=== PATIENT | male | born 1990 | race Two or more races ===

== ENCOUNTER 2024-03-10 11:21 | Emergency (ER) | payer OTHER, SELFPAY ==
[2024-03-10 11:22] VITALS: BMI 30.9
[2024-03-10 12:01] VITALS: BP 142/101; PULSE 93; RESP 18; TEMP 37.1; O2SAT 98; BMI 30.4
--- NOTE | 2024-03-10 12:21 | XR_ITS ---
Examination: Wrist, left 3 views Technique: Wrist AP, oblique, lateral 3 views Date and time of exam: March 10, 2024 1227 hours INDICATIONS: Patient fell from a ladder today with injury to the wrist, wrist pain FINDINGS: Acute comminuted intra-articular fracture distal radial metaphysis, mild offset of the articulating surface Fracture ulnar styloid tip Palmar angulation at the fracture site IMPRESSION: Acute comminuted angulated intra-articular fracture distal radial metaphysis
--- NOTE | 2024-03-10 12:34 | PD.EDRME ---
Rapid Medical Screening Exam RME Arrival date/time: 03/10/24 11:21 33-year-old male presents emergency department today with injury to left wrist while at work today patient appears to deformity Chief Complaint: Extremity Injury, Upper Vital signs: Vital Signs Temperature 98.8 F 03/10/24 12:01 Pulse Rate 93 03/10/24 12:01 Respiratory Rate 18 03/10/24 12:01 Blood Pressure 142/101 H 03/10/24 12:01 Pulse Oximetry (%) 98 03/10/24 12:01 Oxygen Delivery Method Room Air 03/10/24 12:01
[2024-03-10] MEDS: HYDROcodone/APAP 5/325 TABLET 1 TAB PO (13:04)
--- NOTE | 2024-03-10 14:28 | EDNOTE_ITS ---
Upper Extremity Injury RME/HPI General Chief Complaint: Extremity Injury, Upper Stated Complaint: FALL AT WORK LEFT WRIST DEFORMITY Arrival date/time: 03/10/24 11:21 RME / HPI RME / HPI narrative: 03/10/24 11:21 33-year-old male presents emergency department today with injury to left wrist while at work today patient appears to deformity DR. NUNEZ MAIN ED EVALUATION: 33 year old male with no past medical history presents to the Emergency Department with reported complaint of left wrist pain/ injury after falling from a ladder at work Related Data Previous Rx's ?Medication ?Instructions ?Recorded ibuprofen 600 mg tablet 600 mg PO Q8H PRN fever or p ain 06/14/19 #30 tabs Allergies Allergy/AdvReac Type Severity Reaction Status Date / Time No Known Allergies Allergy Verified 03/10/24 11:26 Review of Systems Review of Systems Systems Reviewed: All systems reviewed, normal except as documented Narrative Review of Systems: GEN: No fever, no chills, no weight loss EYES: No discharge, no visual changes, no pain HEENT: No ear pain, no congestion, no sore throat PULM: No shortness of breath, no cough, no congestion CV: No chest pain, no dyspnea on exertion, no palpitations GI: No nausea, no vomiting, no diarrhea, no pain, no constipation : No frequency, no urgency and no dysuria MUSC/SKEL: + left wrist pain/ injury, no back pain SKIN: No rash PSYCH: No hallucinations, no depression HEME/LYMPH: No easy bleeding or bruising tendencies NEURO: No weakness, no headache Past Medical History Past Medical History CARDIAC: Negative Congestive Heart Failure RESPIRATORY: Negative Chronic Obstructive Pulmonary Disease (COPD) GENITOURINARY: Negative Renal Disease ENDOCRINE: Negative Diabetes Mellitus Type 1 or Diabetes Mellitus Type 2 Social History SMOKING STATUS: Never smoker SUBSTANCE USE: does not use ED Exam Narrative Physical exam: Exam pending Course Course Course Narrative: Multiple requests to bring patient from lobby for examination and probable sedation with reduction of wrist. Still no bed available. Still waiting on bed availability to treat patient. Repeat request to find bed for patient for treatment. Notified oncoming provider that patient needs wrist reduction according to XR findings but patient has still not been evaluated Quality Measures none Orders Category Date Time Status XR wrist comp LT min 3V Stat Exams 03/10/24 12:21 Completed HYDROcodone*/APAP 5/325 [[place] 5/325] Med 03/10/24 12:20 Discontinued 1 tab PO X1 ONE Ketorolac Inj [Toradol Inj] Med 03/10/24 14:10 Discontinued 30 mg IM X1 ONE Vital Signs Vital signs: Vital Signs Temperature 98.8 F 03/10/24 12:01 Pulse Rate 93 03/10/24 12:01 Respiratory Rate 18 03/10/24 12:01 Blood Pressure 142/101 H 03/10/24 12:01 Pulse Oximetry (%) 98 03/10/24 12:01 Oxygen Delivery Method Room Air 03/10/24 12:01 Extremity Injury MDM Narrative MDM Narrative:: I, Valery Garibay am scribing for and in the presence of Dr. Nunez. Patient data External records reviewed:: [facility] previous records (Reviewed last ED visit dated 09/25/20, discharged with the following: Methamphetamine intoxication.) Clinical information provided by:: patient Social determinants that could affect healthcare access:: none Patient has the following chronic illnesses:: Denies any PMHx, surgeries, daily medications, or known allergies. How is presenting disease/condition affected by chronic disease/condition?: no chronic disease Evaluation data The following diagnostics were reviewed and interpreted by me:: radiology exam(s) Lab and/or radiology exams considered but not ordered:: none Interpretation Summary: Procedure(s): XR wrist comp LT min 3V Accession Number(s): [id number] cc: Graciela (DEANNA),Rafael HUERTA; Jose Pulido MD; NO PRIMARY/FAMILY,PHYSICIAN~ Examination: Wrist, left 3 views Technique: Wrist AP, oblique, lateral 3 views Date and time of exam: March 10, 2024 1227 hours INDICATIONS: Patient fell from a ladder today with injury to the wrist, wrist pain FINDINGS: Acute comminuted intra-articular fracture distal radial metaphysis, mild offset of the articulating surface Fracture ulnar styloid tip Palmar angulation at the fracture site IMPRESSION: Acute comminuted angulated intra-articular fracture distal radial metaphysis Dictated By: Jose Pulido MD Medications / Prescriptions Medications or Prescriptions considered but not ordered:: none Medication administrations:: Medication Administration History Discontinued Medications Hydrocodone Bitart/Acetaminophen (Hydrocodone/Apap 5/325 Tablet) 1 tab PO X1 ONE Stop: 03/10/24 12:21 Last Admin: 03/10/24 13:04 Dose: 1 tab Documented By: VG Ketorolac Tromethamine (Ketorolac Inj 30 Mg/Ml Vial) 30 mg IM X1 ONE Stop: 03/10/24 14:11 Last Admin: 03/10/24 15:51 Dose: 30 mg Documented By: see above Consultations Consultation(s) initiated? (list below): Yes Consultation #1 (Physician, Specialty, Details): Discussed test HPI, PMHx, lab, radiology results and/or management with Dr. Ocasio. Recommends reduce and follow-up with a hand surgeon, options include at [facility] orthopedic specialists or at [place]. Time: 14:22 Diagnosis Upper Extremity Injury Differential Diagnosis: sprain and strain of wrist, fracture of wrist and fracture of hand Most likely diagnosis given after review of the tests above:: As noted below. Admission Indicated Admission indicated?: not indicated Explain why admission is indicated or not indicated:: Patient eloped. Admission Request Was there a request for admission?: No Disposition Plan Disposition Plan: other (specify) (Patient eloped.) Discharge Plan Plan Patient Disposition: Elopement Prescriptions/Referrals Prescriptions/Med Rec: No Action ibuprofen 600 mg tablet 600 mg PO Q8H PRN (Reason: fever or pain) Qty: 30 0RF Referrals: No Primary/Family,Physician [Primary Care Provider] - In 1 week Problem List Clinical Impression: Fracture of wrist, Fall Patient/Caregiver Discharge Instructions Print Language: Latvian
[2024-03-10] MEDS: KETOROLAC INJ 30 MG/ML VIAL IM (15:51)
[2024-03-10 18:17] VITALS: BP 148/104; PULSE 99; RESP 18; TEMP 36.9; O2SAT 98
== END 2024-03-10 18:42 | disposition left against medical advice (07) ==
LOC: SERX 12:26
PROVIDERS: Emergency Provider Emergency Medicine
DX: S52.572A Other intraarticular fracture of lower end of left radius, initial encounter for closed fracture (principal); W11.XXXA Fall on and from ladder, initial encounter; Y99.0 Civilian activity done for income or pay; Z53.29 Procedure and treatment not carried out because of patient's decision for other reasons
CPT/HCPCS: 73110; 96372; 99283; J1885; A9270